=== PATIENT | female | born 1950 | race Caucasian/White ===

== ENCOUNTER 2022-11-25 16:06 | Emergency (ER) | payer MEDICARE ==
[~2022-11-25] VITALS: Ht 167.6 cm; Wt 56.7 kg
--- NOTE | 2022-11-25 19:15 | NUR ---
Patient was called to be placed in room but patient was not present in the waiting room or outside of ER. Patient was placed outside by previous triaged nurse after being traiged due to no beds available in the ER at the time.
--- NOTE | 2022-11-25 19:45 | NUR ---
Patient was called to be placed in room but was not present in the waiting room or outside of ER. PATIENT WAS TRIAGED BUT NOT SEEN BY ERMD.
== END 2022-11-25 19:45 | disposition left against medical advice (07) ==
LOC: ER 16:13
DX: Z53.21 Procedure and treatment not carried out due to patient leaving prior to being seen by health care provider (principal)